=== PATIENT | female | born 1960 | race Two or more races ===

== ENCOUNTER 2018-05-12 17:39 | Emergency (ER) | payer OTHER ==
[~2018-05-12] VITALS: Ht 162.6 cm; Wt 80.7 kg
[2018-05-12] MEDS ORDERED: ABILIFY2 MG (17:50)
[2018-05-12] MEDS ORDERED: LEXAPRO20 MG (17:50)
== END 2018-05-12 21:01 | disposition home or self-care (01) ==
LOC: ER 17:39 → EMR PED 17:45 → ER 21:01
DX: S93.492A Sprain of other ligament of left ankle, initial encounter (principal); X50.0XXA Overexertion from strenuous movement or load, initial encounter; Y93.89 Activity, other specified; Y92.814 Boat as the place of occurrence of the external cause; Y99.8 Other external cause status